=== PATIENT | male | born 1990 | race Caucasian/White ===

== ENCOUNTER 2016-06-15 15:24 | Emergency (ER) | payer OTHER, MEDICAID ==
[2016-06-15] MEDS ORDERED: PSEUDOEPHEDRINE 30 MG PO ONE (18:25)
== END 2016-06-15 19:57 | disposition home or self-care (01) ==
LOC: ER 15:24
DX: N48.30 Priapism, unspecified (principal)
CPT/HCPCS: 36415; 80307; 85025

== ENCOUNTER 2016-06-18 16:54 | Emergency (ER) | payer OTHER, MEDICAID ==
[2016-06-18] MEDS ORDERED: ONDANSETRON 4 MG VIAL ONE (20:10)
[2016-06-18] MEDS ORDERED: SODIUM CHLORIDE 0.9% 1,000 ML ONE (20:10)
== END 2016-06-18 21:36 | disposition home or self-care (01) ==
LOC: ER 16:54
DX: R11.0 Nausea (principal)
CPT/HCPCS: 81003; 87491; 87591; 96361; 96374